=== PATIENT | male | born 1955 | race Caucasian/White ===

== ENCOUNTER → 2021-06-14 | Day surgery (SDC) | payer MEDICARE ==
[~2021-06-14] VITALS: Ht 198.1 cm; Wt 147.4 kg
[~2021-06-14] MED LIST: ADVAIR 100-501 EACH INH; ALDACTONE50 MG PO; COZAAR50 MG PO; CYMBALTA 30MG C30 MG PO; FLONASE ALLER15.8 ML; FOLIC ACID1 MG PO; LIPITOR20 MG PO; METFORMIN HCL500 MG PO; MUCINEX 600MG600 MG PO; NEURONTIN300 MG PO; NORVASC5 MG PO; ONE-DAILY MULT1 EACH PO; SPIRIVA18 MCG INH; VENTOLIN (2.5 MG/3 M INH; VITAMIN B-150 MG PO
== END | disposition home or self-care (01) ==
LOC: FAS 08:33
DX: Z12.11 Encounter for screening for malignant neoplasm of colon (principal); D12.3 Benign neoplasm of transverse colon; K74.60 Unspecified cirrhosis of liver; K76.0 Fatty (change of) liver, not elsewhere classified; E66.9 Obesity, unspecified; E11.9 Type 2 diabetes mellitus without complications; I10 Essential (primary) hypertension; J44.9 Chronic obstructive pulmonary disease, unspecified; F17.210 Nicotine dependence, cigarettes, uncomplicated; Z79.84 Long term (current) use of oral hypoglycemic drugs; Z96.652 Presence of left artificial knee joint; Z88.5 Allergy status to narcotic agent; Z97.4 Presence of external hearing-aid; Z96.1 Presence of intraocular lens; Z68.32 Body mass index [BMI] 32.0-32.9, adult; Z80.0 Family history of malignant neoplasm of digestive organs
CPT/HCPCS: J2250; J2704; J7120